=== PATIENT | female | born 1985 | race Caucasian/White ===

== ENCOUNTER 2018-03-01 08:21 | Outpatient (CLI) | payer OTHER ==
--- NOTE | 2018-03-01 10:25 | MRI ---
MRI OF RIGHT KNEE PERFORMED WITHOUT CONTRAST ENHANCEMENT: HISTORY: Medial knee pain for 2 months. No known injury. FINDINGS: The anterior as well as posterior cruciate ligaments are intact. The medial and lateral menisci are normal in shape and appearance. The medial and lateral collateral ligaments and iliotibial band regions are unremarkable. Patellar articular cartilage is intact. Medial and lateral patellar retinaculum as well as quadricep s and patellar tendons are normal. Some mild edema associated with Hoffa's fat pad. There is also s ome nonspecific prepatellar soft tissue edema change noted. Patellar tendon itself is normal in appe arance. IMPRESSION: 1. No evidence of cruciate ligament or meniscal injury. 2. Mild edema changes associated with the more posterior portion of Hoffa's fat pad. This could ind icate some fat pad impingement. POS: [facility]
== END 2018-03-01 08:22 | disposition home or self-care (01) ==
LOC: BICMRI 08:21
PROVIDERS: ATTEND Family Medicine
DX: M23.91 Unspecified internal derangement of right knee (principal)